=== PATIENT | male | born 1965 | race Caucasian/White ===

== ENCOUNTER 2017-01-18 08:23 | Day surgery (SDC) | payer MEDICAID ==
[~2017-01-18] VITALS: Ht 175.3 cm; Wt 63.5 kg
[~2017-01-18 08:23] MED LIST: HYDROCODONE-APA1 TAB PO; KLONOPIN1 MG PO; PHENERGAN25 M1 PO; ULTRAM50 MG PO
[2017-01-18 08:52] VITALS: BP 121/71; Ht 175.3 cm; Wt 63.5 kg
[2017-01-18] MEDS ORDERED: HYDROCODONE-APA1 TAB PO (11:14)
--- NOTE | 2017-01-18 12:40 | NUR ---
IV DC WITH CATHER TIP INTACT
--- NOTE | 2017-01-22 18:57 | OP ---
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 PROCEDURE: 1. Right ring finger MCP soft tissue arthroplasty using allograft. 2. Extensor mechanism repair. SURGEON: Storm Landrum MD. ANESTHESIA: General. INTRAOPERATIVE COMPLICATIONS: None. SUMMARY OF PATHOLOGIC FINDINGS: As listed in the preoperative diagnoses, the patient's extensor mechanism had been substantially destructed at the dorsal hussein required reconstruction as did the patient's MCP joint was essentially obliterated. OPERATIVE SUMMARY IN DETAIL: After obtaining the appropriate preoperative orthopedic surgery consent as well as anesthetic consultation, evaluation and clearance, the patient was brought to the operating room and placed on the operating table in supine position. After general laryngeal mask was administered, tourniquet was placed about the proximal aspect of the right upper extremity. Right upper extremity was then prepped and draped in routine sterile fashion. The arm was elevated and exsanguinated, tourniquet inflated to 250 mmHg. Curvilinear incision was made over the MCP joint, taken down to the level of the scarred fibrotic joint itself, which was debrided back to its bony elements, flattened on each side, the extensor mechanism distally and proximally was dissected out cleanly. At this point, a posterior tibialis allograft was cut into the appropriate size needed for interpositional arthroplasty. The interpositional arthroplasty was sewn in upon itself and then anchored both distally and proximally to the proximal phalanx and metacarpal using micro anchors from [employer]. The MCP and arthroplasty was sewn in place using these anchors. Having completed this, the second part of the posterior tendon allograft was utilized to reconstruct the dorsal extensor mechanism, this was tied in gently with a 2-0 FiberWire. Having completed this, this was copiously irrigated and held in extension for the rest of the case. The skin incision was closed with 4-0 Prolene in a running fashion. At this point, sterile dressings were applied. An ulnar gutter splint was applied to hold the fingers in full extension. Having completed this, tourniquet was deflated. The patient was awakened and taken to the recovery room in stable condition. All final needle and sponge counts were correct. TRANSINT:[id number] Voice Confirmation ID: [id number] DOCUMENT ID: [id number] OPERATIVE REPORT [id number] STEF MENDOZA MD, STORM MACIAS at 1857 CC: [id number] DICTATION DATE: 01/22/17851 AGRICULTURAL EDUCATION INSTRUCTOR: 01/22/17 [facility] 01/18/17 [facility] [address] [place] [address]
== END 2017-01-18 12:45 | disposition home or self-care (01) ==
LOC: D.OPS 08:23 → D.PAN 09:45 → D.OPS 12:45 → D.PAN 17:00
DX: S66.314A Strain of extensor muscle, fascia and tendon of right ring finger at wrist and hand level, initial encounter (principal)

== ENCOUNTER 2017-07-05 06:54 | Outpatient (CLI) | payer MEDICAID ==
[~2017-07-05] VITALS: Ht 177.8 cm; Wt 65.0 kg
--- NOTE | ~2017-07-05 | HEMODYNAMI ---
PATIENT:STEF MENDOZA MEDICAL RECORD: [id number] : 63 LOCATION:DDOMINICK ADMISSION DATE: 07/05/17 Generatedon:07/05/20179:46 Patient name: STEF MENDOZA Patient #: [id number] SSN: [id number] : 1965 Date of study: 07/05/2017 Page: Of Hemodynamic Procedure Report Patient Data Patient Demographics Procedure consent was obtained First Name: STEF Gender: Male Last Name: KELLY : 1965 [facility] Initial: BENI Age: 51 year(s) Patient #: [id number] Race: SSN: [id number] Additional ID: [id number] Contact details Address: [address] [place] [address] State: [place] City: [place] Zip code: [address] Past Medical History Allergies: No known allergies Admission Admission Data Admission Date: 07/05/2017 Admission Time: 6:54 Lab Results Lab Result Date: 07/05/2017 Lab Result Time: 0:00 Biochemistry Name Units Result Min Max BUN mg/dl 9 --(*---)-- 7 18 Creatinine mg/dl 1 --(--*-)-- 0.6 1.3 CBC Name Units Result Min Max Hemoglobin g/dl 15.3 --(-*--)-- 13.5 17.5 Procedure Procedure Types Cath Procedure Diagnostic Procedure [facility] w/Coronaries Miscellaneous Procedures Moderate Sedation up to 15 minutes Procedure Description Procedure Date Procedure Date: 07/05/2017 Procedure Start Time: 9:33 Procedure End Time: 9:43 Procedure Staff Name Function Frederick Carr MD Performing Physician Ginny Knowles RN Nurse Sondra Garcia RT Monitor Johana Mcwilliams RT Scrub Indication Angina Procedure Data Cath Procedure Fluoroscopy Diagnostic fluoroscopy Total fluoroscopy Time: 1.9 time: 1.9 min min Diagnostic fluoroscopy Total fluoroscopy dose: 249 dose: 249 mGy mGy Contrast Material Contrast Material Type Amount (ml) Isovue 300 48 Entry Location Entry Primary Successful Side Size Upsize Upsize Entry Closure Redman ccessful Closure Location (Fr) 1 (Fr) 2 (Fr) Remarks Device Remarks Radial Right 6 Fr Mechanical tr b artery Short Compression Estimated blood loss: 10 ml Diagnostic catheters Device Type Used For End Catheter Placement Terumo 5Fr Jose G 110cm Procedure catheter Procedure Complications No complications Procedure Medications Medication Administration Route Dosage Oxygen NC 2 l/min Lidocaine 2% added to field 20 Heparin Flush Bag added to field 2 bags (1000units/500ml NS) 0.9% NaCl I.V. 100 ml/hr Versed I.V. 1 mg Fentanyl I.V. 50 mcg Radial Cocktail I.A. 1 syringe (Verapomil 2mg/Nitro 400mcg/Heparin 1500units) Versed I.V. 1 mg Fentanyl I.V. 50 mcg Versed I.V. 1 mg Fentanyl I.V. 50 mcg Hemodynamics Rest HGB: 15.3 (g/dl) Heart Rate: 61 (bpm) Pressure Samples Time Site Value (mmHg) Purpose Heart Use Rate(bpm) 9:37 LV 99/86,6 Snapshot 76 9:37 LV 110/-3,11 Snapshot 18 Gradients Valve Time Site Site Mean SEP/DFP Peak To Heart Use 1 2 (mmHg) (sec/min) Peak Rate (mmHg) (bpm) Aortic 9:38 LV AO 39 Snapshots Pre Cath Intra NCS Post Cath Vital Signs Time Heart Resp SPO2 NIBP (mmHg) Rhythm Pain Sedation Rate (ipm) (%) Status Level (bpm) 9:13:54 58 20 94 126/89(106) NSR 0 (11) 10(A) , No pain 9:18:04 62 15 92 108/76(90) NSR 0 (11) 10(A) , No pain 9:22:06 60 17 94 114/75(85) NSR 0 (11) 10(A) , No pain 9:26:11 56 15 98 110/73(81) NSR 0 (11) 10(A) , No pain 9:30:15 58 16 95 106/74(85) NSR 0 (11) 10(A) , No pain 9:34:19 62 15 98 107/68(83) NSR 0 (11) 9(A) , No pain 9:38:23 116 14 98 102/65(84) NSR 0 (11) 9(A) , No pain 9:42:26 63 17 96 108/62(77) NSR 0 (11) 10(A) , No pain Medications Time Medication Route Dose Verified Delivered Reason Notes E ffectiveness by by 9:21:41 Oxygen NC 2 l/min Frederick Buffie used for Bruno Knowles RN procedure 9:21:47 Lidocaine 2% added 20ml Frederick Frederick for local to vial Bruno Crar MD anesthetic field 9:21:54 Heparin Flush added 2 bags Frederick Frederick used for Bag to Bruno Carr MD procedure (1000units/500ml field NS) 9:22:02 0.9% NaCl I.V. 100 Frederick Buffie Per ml/hr Bruno Knowles RN physician 9:30:00 Versed I.V. 1 mg Frederick Buffie for sedation Bruno Knowles RN 9:30:05 Fentanyl I.V. 50 mcg Frederick Buffie for sedation Bruno Knowles RN 9:36:13 Radial Cocktail I.A. 1 Frederick Frederick for (Verapomil syringe Bruno Carr MD vasodilation 2mg/Nitro 400mcg/Heparin 1500units) 9:36:39 Versed I.V. 1 mg Frederick Buffie for sedation Bruno Knowles RN 9:36:43 Fentanyl I.V. 50 mcg Frederick Buffie for sedation Bruno Knowles RN 9:40:22 Versed I.V. 1 mg Frederick Buffie for sedation Bruno Knowles RN 9:40:26 Fentanyl I.V. 50 mcg Fredreick Buffie for sedation Bruno Knowles RN Procedure Log Time Note 8:56:11 Informed consent obtained and on chart 8:56:16 Diagnostic Cath Status : Elective 8:56:37 Indication : Angina 8:56:44 Ginny Knowles RN sent for patient. Start room use. 8:56:45 Time tracking: Regular hours 8:56:48 Plan of Care:Hemodynamics will remain stable., Cardiac rhythm will remain stable., Comfort level will be maintained., Respiratory function will remain adequate., Patient/ family verbilizes understanding of procedure., Procedure tolerated without complication., Recovers from procedure without complications.. 9:06:19 Warm blankets applied, and acacia hugger turned on for patient comfort. 9:06:22 Correct patient and procedure confirmed by team. 9:06:23 ECG and BP/O2 sat monitors applied to patient. 9:08:47 Patient received from Pre/Post Procedure Room to CCL 2 Alert and oriented. Tansferred to table in Supine position. 9:08:49 Full Disclosure recording started 9:12:51 Vital chart was started 9:12:56 Rhythm: sinus rhythm 9:15:12 Baseline sample Acquired. 9:15:31 H&P Date Dictated: 07/04/2017 Within 30 days and on chart., H&P Addendum completed by physician on day of procedure. (MUST COMPLETE FOR ALL OUTPATIENTS). 9:15:33 Pre-procedure instructions explained to patient. 9:15:35 Family in waiting room. 9:15:41 Patient NPO since Midnight. 9:15:50 Patient allergic to No known allergies 9:15:54 Is the patient allergic to Iodine/contrast media? No. 9:15:56 Is patient on blood thinner?No 9:17:57 Patient diabetic? No. 9:18:04 Snore? No 9:18:06 Sleep apnea? No 9:18:13 Dentures? Yes ? 9:18:25 IV patent on arrival in left antecubital with 0.9% NaCl at [facility]. 9:21:19 Lab results completed and on chart. 9:21:41 Oxygen 2 l/min NC was administered by Ginny Knowles RN; used for procedure; 9::46 Lab Result : Creatinine 1 mg/dl 9::46 Lab Result : BUN 9 mg/dl 9::46 Lab Result : Hemoglobin 15.3 g/dl 9::47 Lidocaine 2% 20ml vial added to field was administered by Frederick Carr MD; for local anesthetic; 9:21:54 Heparin Flush Bag (1000units/500ml NS) 2 bags added to field was administered by Frederick Carr MD; used for procedure; 9:22:02 0.9% NaCl 100 ml/hr I.V. was administered by Ginny Knowles RN; Per physician; 9:27:03 Zero performed for pressure channel P1 9:27:08 Zero performed for pressure channel P1 9:27:31 Alarms reviewed by R. N. 9::32 Sharps counted by scrub and verified by R.N. 9:27:32 Physician paged 9::34 Physician arrived 9::34 --------ALL STOP TIME OUT------ 9::36 Final Timeout: patient, procedure, and site verified with staff and physician. All members of the team are in agreement. 9:27:38 Right Radial & Right Groin site verified by team. 9:27:42 Sedation plan: IV Moderate Sedation Versed, Fentanyl 9:27:51 Use device set Radial Dx 9:30:00 Versed 1 mg I.V. was administered by Ginny Knowles RN; for sedation; 9:30:05 Fentanyl 50 mcg I.V. was administered by Ginny Knowles RN; for sedation; 9:32:12 Procedure started. 9:32:13 Acist Syringe opened to sterile field. 9:32:14 Medline Cath Pack opened to sterile field. 9:32:16 Bag Decanter opened to sterile field. 9:32:16 Terumo 6Fr Slender Glidesheath opened to sterile field. 9:32:16 St Frederick 260cm J .035 wire opened to sterile field. 9:32:17 Acist Hand Control opened to sterile field. 9:32:17 Acist Manifold opened to sterile field. 9:32:18 Tegaderm 4 x 4 opened to sterile field. 9:32:18 MBrace Wrist Support opened to sterile field. 9:33:22 Local anesthetic to left brachial artery with Lidocaine 2% by Frederick Carr MD.INITIAL ACCESS ONLY 9:35:17 A 6 Fr Short sheath was inserted into the Right Radial artery 9:36:04 A Terumo 5Fr Jose G 110cm catheter was advanced over the wire and used for Procedure. 9:36:13 Radial Cocktail (Verapomil 2mg/Nitro 400mcg/Heparin 1500units) 1 syringe I.A. was administered by Frederick Carr MD; for vasodilation; 9:36:15 LV angiography performed. 9:36:39 Versed 1 mg I.V. was administered by Ginny Knowles RN; for sedation; 9:36:43 Fentanyl 50 mcg I.V. was administered by Ginny Knowles RN; for sedation; 9:37:49 EF : 60 % 9:38:23 RCA angiography performed. 9:38:55 LCA angiography performed. 9:40:16 Terumo TR Band Standard opened to sterile field. 9:40:18 Catheter removed. 9:40:22 Versed 1 mg I.V. was administered by Ginny Knowles RN; for sedation; 9:40:26 Fentanyl 50 mcg I.V. was administered by Ginny Knowles RN; for sedation; 9:40:45 Sheath removed intact; hemostasis achieved with Mechanical Compression to the Right Radial artery. 9:40:49 Procedure ended.(Physican Out) 9:40:58 Fluoroscopy time 01.90 minutes. 9:41:03 Fluoroscopy dose: 249 mGy 9:41:03 Flurop Dose total: 249 9:41:08 Contrast amount:Isovue 300 48ml. 9:41:38 TR band inflated with 12cc of air. 9:41:39 Insertion/operative site no bleeding no hematoma. 9:41:50 Post right radial artery:stable 9:41:52 Post Procedure Pulses reassessed and unchanged 9:41:59 Post-procedure physical assessment completed. ASA score P 2 - A patient with mild systemic disease as per Frederick Carr MD. 9:42:07 Post procedure rhythm: unchanged. 9:42:10 Estimated blood loss: 10 ml 9:42:11 Post procedure instruction explained to patient.Patient verbalizes understanding. 9:42:25 Procedure type changed to Cath procedure, Diagnostic procedure, LHC, LHC w/Coronaries, Miscellaneous Procedures, Moderate Sedation up to 15 minutes 9:42:27 Procedure and supply charges have been captured, reviewed, submitted and are correct. 9:42:47 Procedure Complication : No complications 9:42:51 Vital chart was stopped 9:43:02 See physician's report for complete and final results. 9:43:06 Report given to Pre/Post Procedure Room. 9:43:11 Patient transfered to Pre/Post Procedure Room with Stretcher. 9:43:13 Procedure ended. 9:43:13 Full Disclosure recording stopped 9:43:30 End room use (Document Last) Device Usage Item Name Manufacture Quantity Catalog Hospital Part Current Minimal Lot# / Number Charge Number Stock Stock Serial# Code Acist Acist 1 [id number] [id number] [id number] [id number] 20 Syringe [employer] Inc Medline Cardinal 1 [id number] [id number] 58676 694807 5 Cath Pack Health Bag Microtek 1 482948 92010 877763 5 Decanter [employer] Inc[employer] Terumo 6Fr Terumo 1 [id number] 750954 707554 978225 [address] [facility] Frederick 1 359324 536872 702351 081831 30 260cm J .035 wire Acist Hand Acist 1 03554 922719 142768 490399 5 Control [employer] Inc Acist Acist 1 34938 597952 392275 178350 5 Manifold [employer] Inc Tegaderm 4 3M 1 1626W 960312 515015 976437 5 x 4 MBrace Advanced 1 140-0250-00 493058 31589 458385 5 Wrist Vascular Support Dynamics Terumo 5Fr Terumo 1 56-7924 311471 300621 642932 5 Jose G 110cm catheter Terumo TR Terumo 1 [id number] 416026 894147 446016 40 Band Standard Signature Audit [place] Stage Time Signature Unsigned Intra-Procedure 07/05/2017 Sondra Garcia 9:46:48 AM RT(R) Signatures Monitor : Sondra Garcia Signature : RT Date : Time : [address] [place] [address]
[2017-07-05 07:09] VITALS: BP 123/82; Ht 177.8 cm; Wt 65.0 kg
[2017-07-05 07:26] LABS: BASOPHILS 0.6 % (0-2); EOSINOPHILS 4.5 % (0-7); HEMATOCRIT 45.2 % (42.0-54.0); HEMOGLOBIN 15.3 g/dL (13.5-17.5); IMMATURE GRANULOCYTES 0.4 % (0-5); LYMPHOCYTES 28.8 % (15-50); MCH 32.9 pg (26.0-34.0); MCHC 33.8 g/dL (31.0-37.0); MCV 97.2 fL (80.0-100.0); MEAN PLATELET VOLUME 9.8 fL (7.4-10.4); MONOCYTES 9.8 % (2-11); NEUTROPHILS 55.9 % (40-80); PLATELET COUNT 226 10x3/uL (130-400); RBC 4.65 10x6/uL (4.20-6.10); RDW 13.9 % (11.5-14.5); WBC 4.7 10x3/uL (4.8-10.8)
[2017-07-05 07:36] LABS: CALC OSMOLALITY 283 mosm/kg (275-300); CALCIUM 9.4 mg/dL (8.5-10.1); CARBON DIOXIDE 28.6 mmol/L (21.0-32.0); CHLORIDE - SERUM 107 mmol/L (98-107); GLUCOSE 100 mg/dL (74-106); POTASSIUM - SERUM 4.6 mmol/L (3.5-5.1); SODIUM 143 mmol/L (136-145); UREA NITROGEN 9 mg/dL (7-18); eGFR NON AFRICAN AMERICAN 83 mL/min (90-120)
--- NOTE | 2017-07-05 10:04 | NUR ---
RECIEVED TO ROOM VIA STRETCHER FROM [employer]CH[employer]ICAL [employer]ES CONSULTANT WITH TR BAND TO R/WRIST CDI NO BLEEDING NO HEMATOMA NOTED. REPORTS OF A CLEAN CATH WITH OUT INTERVENTION. HR 59 BP 100/69 NO DISTRESS NOTED CHEST PAIN DENIED
--- NOTE | 2017-07-05 10:22 | NUR ---
VSS WITH NO DISTRESS NOTED TR BAND TO R/WRIST CDI NO BLEEDING NO HEMATOMA NOTED. AT BEDSIDE
--- NOTE | 2017-07-05 10:56 | NUR ---
TR BAND REMAINS TO R/WRIST CDI NO BLEEDING NO HEMATOMA NOTED. VSS WITH CHEST PAIN DENIED. PATIENT SITTING WITH HOB UP 30 DEGREES EATING SANDWICH TOLERATING WELL NAUSEA DENIED
--- NOTE | 2017-07-05 11:12 | NUR ---
2 CC AIR REMOVED FROM TR BAND WITH NO BLEEDING NO HEMATOMA NOTED
--- NOTE | 2017-07-05 11:29 | NUR ---
2 CC AIR REMOVED FROM TR BAND WITH NO BLEEDING NO HEMATOMA NOTED CHEST PAIN IS DENIED WITH VSS
--- NOTE | 2017-07-05 11:47 | NUR ---
2 CC AIR REMOVED FROM TR BAND WITH NO BLEEDING NOTED. PIV REMOVED FROM L/ARM WITH PRESSURE HELD AND DRESSING APPLIED. CHEST PAIN IS DENIED. PATIENT UP TO GET DRESSED FOR DISCHARGE HOME
--- NOTE | 2017-07-05 11:53 | NUR ---
TR BAND REMOVED WITH TEGADERM AND 2X2 APPLIED. BRACE REMAINS IN PLACE. D/C INSTRUCTIONS DISCUSSED WITH PATIENT AND AT BEDSIDE. WHEELED OUT VIA WHEELCHAIR BY CATH TEAM.
== END 2017-07-05 11:55 | disposition home or self-care (01) ==
LOC: D.CATH 06:54
PROVIDERS: Internal Medicine Cardiovascular Disease
DX: I20.9 Angina pectoris, unspecified (principal); R94.31 Abnormal electrocardiogram [ECG] [EKG]; Z82.49 Family history of ischemic heart disease and other diseases of the circulatory system; Z01.812 Encounter for preprocedural laboratory examination

== ENCOUNTER → 2017-11-02 13:01 | Outpatient (CLI) | payer OTHER ==
[2017-07-05 07:09] VITALS: BMI 20.5
== END | disposition home or self-care (01) ==
LOC: D.RT 13:00
DX: Z02.71 Encounter for disability determination (principal)

== ENCOUNTER 2018-02-04 10:13 | Emergency (ER) | payer MEDICAID ==
[2017-07-05 07:09] VITALS: BMI 20.5
[2018-02-04 11:33] LABS: BASOPHILS 0.5 % (0-2); EOSINOPHILS 1.8 % (0-7); HEMATOCRIT 43.5 % (42.0-54.0); HEMOGLOBIN 14.9 g/dL (13.5-17.5); IMMATURE GRANULOCYTES 0.2 % (0-5); LYMPHOCYTES 26.7 % (15-50); MCH 33.3 pg (26.0-34.0); MCHC 34.3 g/dL (31.0-37.0); MCV 97.3 fL (80.0-100.0); MEAN PLATELET VOLUME 9.7 fL (7.4-10.4); MONOCYTES 9.5 % (2-11); NEUTROPHILS 61.3 % (40-80); PLATELET COUNT 227 10x3/uL (130-400); RBC 4.47 10x6/uL (4.20-6.10); RDW 13.3 % (11.5-14.5)
[2018-02-04 11:46] LABS: ALBUMIN 3.9 g/dL (3.4-5.0); ALKALINE PHOSPHATASE 43 U/L (46-116); ALT (SGPT) 36 U/L (10-68); AMYLASE - SERUM 45 U/L (25-115); BILIRUBIN - TOTAL 0.38 mg/dL (0.2-1.3); CALC OSMOLALITY 275 mosm/kg (275-300); CALCIUM 8.7 mg/dL (8.5-10.1); CARBON DIOXIDE 30.4 mmol/L (21.0-32.0); CHLORIDE - SERUM 103 mmol/L (98-107); GLUCOSE 82 mg/dL (74-106); LIPASE 120 U/L (73-393); POTASSIUM - SERUM 4.2 mmol/L (3.5-5.1); PROTEIN - SERUM 7.5 g/dL (6.4-8.2); SODIUM 139 mmol/L (136-145); UREA NITROGEN 11 mg/dL (7-18); eGFR NON AFRICAN AMERICAN 83 mL/min (90-120)
[2018-02-04 13:53] LABS: APPEARANCE CLEAR (CLEAR); BILIRUBIN NEGATIVE (NEGATIVE); COLOR STRAW (YELLOW); GLUCOSE NEGATIVE (NEGATIVE); KETONE NEGATIVE (NEGATIVE); NITRITE NEGATIVE (NEGATIVE); PROTEIN NEGATIVE (NEGATIVE); SPECIFIC GRAVITY 1.005 (1.005-1.020); UROBILINOGEN NORMAL (NORMAL)
== END 2018-02-04 14:50 | disposition home or self-care (01) ==
LOC: D.ER 10:13
PROVIDERS: Emergency Medicine; Nurse Practitioner Family
DX: K52.9 Noninfective gastroenteritis and colitis, unspecified (principal); K29.70 Gastritis, unspecified, without bleeding; Z85.828 Personal history of other malignant neoplasm of skin; F17.200 Nicotine dependence, unspecified, uncomplicated

== ENCOUNTER → 2018-07-15 10:43 | Outpatient (CLI) | payer MEDICAID ==
[2017-07-05 07:09] VITALS: BMI 20.5
== END | disposition home or self-care (01) ==
LOC: D.MRI 10:43
DX: M25.562 Pain in left knee (principal)

== ENCOUNTER 2019-04-21 11:32 | Emergency (ER) | payer MEDICAID ==
[~2019-04-21] VITALS: Ht 177.8 cm; Wt 68.2 kg
[2019-04-21 12:13] VITALS: Ht 177.8 cm; Wt 68.2 kg
[2019-04-21] MEDS ORDERED: SINEQUAN50 MG PO (12:15)
[2019-04-21] MEDS ORDERED: CYCLOBENZAPRINE10 MG PO (12:15)
[2019-04-21] MEDS ORDERED: NALTREXONE HCL50 MG PO (12:16)
[2019-04-21] MEDS ORDERED: LITHOBID 300 M300 MG PO (12:16)
[2019-04-21] MEDS ORDERED: TRILEPTAL300 MG PO (12:16)
[2019-04-21] MEDS ORDERED: SEROQUEL50 MG PO (12:17)
[2019-04-21] MEDS ORDERED: PROPRANOLOL HCL20 MG PO (12:17)
--- NOTE | 2019-04-21 13:22 | NUR ---
DR. MARTIN NOTIFIED AND REVIEWED PT'S BEHAVIOR AND ASSESSMENT RESULTS. PT IS A LOW RISK PER DR. MARTIN. DR. MARTIN STATED TO GIVE RESOURCES TO PT AT TIME OF DISCHARGE. NO FURTHER ORDERS AT THIS TIME. RESOURCES REVIEWED WITH PT AND HE VERBALIZED UNDERSTANDING.
[2019-04-21 13:56] VITALS: BP 114/78
== END 2019-04-21 13:57 | disposition home or self-care (01) ==
LOC: D.ER 11:32
DX: R78.89 Finding of other specified substances, not normally found in blood (principal)

== ENCOUNTER 2020-05-25 17:32 | Emergency (ER) | payer MEDICAID ==
[~2020-05-25] VITALS: Ht 177.8 cm; Wt 71.4 kg
[~2020-05-25 17:32] MED LIST changes: +CYCLOBENZAPRINE10 MG PO; +LITHOBID 300 M300 MG PO; +NALTREXONE HCL50 MG PO; +PROPRANOLOL HCL20 MG PO; +SEROQUEL50 MG PO; +SINEQUAN50 MG PO; +TRILEPTAL300 MG PO
[2020-05-25 17:37] VITALS: Ht 177.8 cm; Wt 71.4 kg
[2020-05-25 18:07] LABS: BASOPHILS 0.5 % (0-2); EOSINOPHILS 3.7 % (0-7); HEMATOCRIT 40.3 % (42.0-54.0); HEMOGLOBIN 13.7 g/dL (13.5-17.5); IMMATURE GRANULOCYTES 0.4 % (0-5); LYMPHOCYTES 29.7 % (15-50); MCH 33.3 pg (26.0-34.0); MCV 97.8 fL (80.0-100.0); MEAN PLATELET VOLUME 9.4 fL (7.4-10.4); MONOCYTES 7.5 % (2-11); NEUTROPHILS 58.2 % (40-80); PLATELET COUNT 210 10x3/uL (130-400); RBC 4.12 10x6/uL (4.20-6.10); RDW 13.5 % (11.5-14.5); WBC 5.6 10x3/uL (4.8-10.8)
[2020-05-25 18:20] LABS: CALC OSMOLALITY 265 mosm/kg (275-300); CALCIUM 7.9 mg/dL (8.5-10.1); CARBON DIOXIDE 25.7 mmol/L (21.0-32.0); CHLORIDE - SERUM 99 mmol/L (98-107); GLUCOSE 105 mg/dL (74-106); POTASSIUM - SERUM 3.6 mmol/L (3.5-5.1); SODIUM 134 mmol/L (136-145); UREA NITROGEN 8 mg/dL (7-18); eGFR NON AFRICAN AMERICAN 82 mL/min (90-120)
[2020-05-25 18:21] LABS: APTT 31.8 SECONDS (22.8-39.4); INR 0.95 (0.85-1.17); PROTIME 12.6 SECONDS (11.6-15.0)
--- NOTE | 2020-05-25 18:33 | NUR ---
DR MARTIN NOTIFIED AND REVIEWED PT'S BEHAVIOR AND ASSESSMENT. PATIENT IS A LOW RISK. RESOURCES GIVEN AND HE VERBALIZES UNDERSTANDING.
[2020-05-25 18:39] LABS: ALBUMIN 3.2 g/dL (3.4-5.0); ALKALINE PHOSPHATASE 66 U/L (30-120); ALT (SGPT) 83 U/L (10-68); CKMB 0.6 U/L (0.0-3.6); CREATINE KINASE 53 UL (21-232); MAGNESIUM - SERUM 1.9 mg/dL (1.8-2.4); PROTEIN - SERUM 6.2 g/dL (6.4-8.2)
[2020-05-25 18:45] LABS: BILIRUBIN NEGATIVE (NEGATIVE); GLUCOSE NEGATIVE (NEGATIVE); KETONE NEGATIVE (NEGATIVE); NITRITE NEGATIVE (NEGATIVE); UROBILINOGEN NORMAL (NORMAL)
[2020-05-25 18:47] LABS: TROPONIN-I < 0.017 ng/mL (0.000-0.060)
[2020-05-25 18:55] LABS: UDS - AMPHET NEGATIVE QUAL (NEGATIVE); UDS - BARB NEGATIVE QUAL (NEGATIVE); UDS - BENZO POSITIVE QUAL (NEGATIVE); UDS - COCAINE NEGATIVE QUAL (NEGATIVE); UDS - OPIATE NEGATIVE QUAL (NEGATIVE); UDS - PCP NEGATIVE QUAL (NEGATIVE); UDS - THC NEGATIVE QUAL (NEGATIVE)
[2020-05-25 22:42] VITALS: BP 96/67
== END 2020-05-25 22:44 | disposition home or self-care (01) ==
LOC: D.ER 17:32
PROVIDERS: Family Medicine
DX: F10.10 Alcohol abuse, uncomplicated (principal); Y90.6 Blood alcohol level of 120-199 mg/100 ml; R07.89 Other chest pain